=== PATIENT | male | born 1965 | race Caucasian/White ===

== ENCOUNTER 2024-02-22 13:59 | Inpatient (IN) | payer MEDICARE, MEDICAID ==
[2024-02-22 14:34] LABS: #Basophils 0.1 thou/uL (0.0-0.2); #Eosinphils 0.3 thou/uL (0.0-0.7); #Lymphocytes 1.2 thou/uL (1.20-3.40); #Monocytes 0.7 thou/uL (0.11-0.59); #Neutrophils 4.5 thou/uL (1.40-6.50); %Eosinophils 4.4 % (0.0-10.0); %Lymphocytes 17.4 % (21.0-51.0); %Monocytes 9.7 % (0.0-10.0); %Neutrophils 67.5 % (42.0-75.0); Hemoglobin 14.1 g/dL (14.0-18.0); Mean Corpuscular HGB CONC 32.1 g/dL (32.0-36.0); Mean Corpuscular Hemoglobin 28.6 pg (27.0-31.0); Mean Platelet Volume 6.2 fL (7.4-10.4); Platelet Count 309 10x3/uL (130-400); RBC Distribution Width 13.5 % (11.5-14.5); Red Blood Cell (RBC) Count 4.94 mill/uL (4.70-6.10); White Blood Cell (WBC) Count 6.7 10x3/uL (4.8-10.8)
[2024-02-22 14:52] LABS: ALT (SGPT) 12 U/L (8-55); AST (SGOT) 12 U/L (5-34); Albumin 3.9 g/dL (3.5-5.0); Alkaline Phosphatase 80 U/L (40-110); Anion Gap 15 mmol/L (10-20); BUN (Urea Nitrogen) 17 mg/dL (8.4-25.7); Bilirubin, Total 0.4 mg/dL (0.2-1.2); Calc. Creatinine Clearance 0 mL/min (70-130); Calcium 9.1 mg/dL (7.8-10.44); Carbon Dioxide 24 mmol/L (22-29); Chloride 105 mmol/L (98-107); Estimated GFR 70; Globulin 3.5 g/dL (2.4-3.5); Glucose 237 mg/dL (70-105); Potassium 4.8 mmol/L (3.5-5.1); Protein, Total 7.4 g/dL (6.0-8.3); Sodium 139 mmol/L (136-145); Troponin I 0.019 ng/mL (< 0.028)
[2024-02-22] MEDS ORDERED: traZODone HCl 50 MG TAB PO PRN (17:35)
[2024-02-22] MEDS ORDERED: Senokot S 8.6-50 MG TAB PO PRN (17:36)
[2024-02-22] MEDS ORDERED: Acetaminophen 325 MG TAB PO PRN (17:36)
[2024-02-22] MEDS ORDERED: Glucagon 1 MG/ML KIT IM PRN (17:39)
[2024-02-22] MEDS ORDERED: Dextrose 50% Abboject 50 ML SYRINGE SLOW IVP PRN (17:39)
[2024-02-22] MEDS ORDERED: Dextrose 5% in Water 1,000 ML IV PRN (17:39)
[2024-02-22] MEDS: Acetaminophen 500 MG TAB ONE (18:08)
[2024-02-22] MEDS: Sodium Chloride 0.9% 100 ML ONE (18:08)
[2024-02-22] MEDS: cefTRIAXone (ROCEPHIN) 2 GM VIAL ONE (18:08)
[2024-02-22] MEDS ORDERED: NALOXONE HCL 4 MG L NARE PRN (18:23)
[2024-02-22] MEDS: Lantus 1000 UNITS/10 ML VIAL SC SCH (20:21)
[2024-02-22] MEDS: Labetalol HCl 200 MG TAB PO SCH (20:22)
[2024-02-22] MEDS: Apixaban 5 MG TAB PO SCH (20:22)
[2024-02-22] MEDS: Carvedilol 25 MG TAB PO SCH (20:22)
[2024-02-22] MEDS: Cyclobenzaprine 10 MG TAB PO SCH (20:23)
[2024-02-22] MEDS: HumaLOG 300 UNITS/3 ML VIAL SC PRN (20:34)
[2024-02-22] MEDS: Divalproex Sodium 250 MG ER.TAB PO SCH (20:36)
[2024-02-22] MEDS: Vancomycin HCl 750 MG in Sodium Chloride 0.9% 250 ML 250 ML IVPB SCH ×2 (23:18→23:21)
[2024-02-23 05:36] VITALS: BMI 26.1
[2024-02-23 05:38] LABS: #Basophils 0.1 thou/uL (0.0-0.2); #Eosinphils 0.4 thou/uL (0.0-0.7); #Lymphocytes 1.5 thou/uL (1.20-3.40); #Monocytes 0.8 thou/uL (0.11-0.59); #Neutrophils 3.5 thou/uL (1.40-6.50); %Eosinophils 6.5 % (0.0-10.0); %Lymphocytes 24.2 % (21.0-51.0); %Monocytes 12.7 % (0.0-10.0); %Neutrophils 55.6 % (42.0-75.0); Hematocrit 37.5 % (42.0-52.0); Hemoglobin 12.7 g/dL (14.0-18.0); Mean Corpuscular HGB CONC 33.8 g/dL (32.0-36.0); Mean Corpuscular Hemoglobin 29.8 pg (27.0-31.0); Mean Corpuscular Volume 88.1 fl (78.0-98.0); Mean Platelet Volume 5.9 fL (7.4-10.4); Platelet Count 266 10x3/uL (130-400); RBC Distribution Width 13.6 % (11.5-14.5); Red Blood Cell (RBC) Count 4.26 mill/uL (4.70-6.10); White Blood Cell (WBC) Count 6.3 10x3/uL (4.8-10.8)
[2024-02-23 05:43] LABS: Vancomycin, Random 18.6 ug/mL (See Comment)
[2024-02-23 05:45] LABS: ALT (SGPT) 10 U/L (8-55); AST (SGOT) 9 U/L (5-34); Albumin 3.3 g/dL (3.5-5.0); Alkaline Phosphatase 69 U/L (40-110); Anion Gap 12 mmol/L (10-20); BUN (Urea Nitrogen) 14 mg/dL (8.4-25.7); Bilirubin, Total 0.2 mg/dL (0.2-1.2); Calc. Creatinine Clearance 78 mL/min (70-130); Calcium 8.6 mg/dL (7.8-10.44); Carbon Dioxide 24 mmol/L (22-29); Chloride 110 mmol/L (98-107); Estimated GFR 92; Globulin 2.9 g/dL (2.4-3.5); Glucose 189 mg/dL (70-105); Potassium 4.1 mmol/L (3.5-5.1); Protein, Total 6.2 g/dL (6.0-8.3); Sodium 142 mmol/L (136-145)
[2024-02-23] MEDS: Lisinopril 10 MG TAB PO SCH (08:30)
[2024-02-23] MEDS: Atorvastatin Calcium 40 MG TAB PO SCH (08:31)
[2024-02-23] MEDS: Tamsulosin HCl 0.4 MG CAP PO SCH (08:32)
[2024-02-23] MEDS: HumaLOG 300 UNITS/3 ML VIAL SC PRN (12:50)
[2024-02-23] MEDS: Acetaminophen/Codeine 30-300mg Tablet PO PRN (12:59)
[2024-02-23] MEDS: cefTRIAXone\\ROCEPHIN 2 GM in Sodium Chloride 0.9% 100 ML IVPB SCH (15:47)
[2024-02-23] MEDS: HYDROcodone/Acetaminophen 5/325 mg Tablet PO PRN (17:32)
[2024-02-23] MEDS: Vancomycin HCl 750 MG in Sodium Chloride 0.9% 250 ML 250 ML IVPB SCH (21:38)
[2024-02-23] MEDS: Vancomycin HCl 500 MG in Sodium Chloride 0.9% 100 ML IVPB SCH (21:42)
[2024-02-24 06:25] LABS: Vancomycin, Random 16.6 ug/mL (See Comment)
[2024-02-24] MEDS: Amlodipine 5 MG TAB PO SCH (09:01)
[2024-02-24 12:27] VITALS: BMI 25.7
[2024-02-24] MEDS: Vancomycin HCl 750 MG in Sodium Chloride 0.9% 250 ML 250 ML IVPB SCH ×2 (12:38→22:18)
[2024-02-24] MEDS ORDERED: Vancomycin HCl 750 MG in Sodium Chloride 0.9% 250 ML 250 ML IVPB SCH (23:00)
[2024-02-25 04:55] VITALS: TEMP 97.5
[2024-02-25] MEDS ORDERED: Ondansetron ODT 4 MG TAB PO PRN (08:09)
[2024-02-25] MEDS ORDERED: Senokot S 8.6-50 MG TAB PO PRN (08:09)
[2024-02-25] MEDS ORDERED: Acetaminophen 325 MG TAB PO PRN (08:09)
[2024-02-25] MEDS ORDERED: Glucagon 1 MG/ML KIT IM PRN (08:19)
[2024-02-25] MEDS ORDERED: HumaLOG 300 UNITS/3 ML VIAL SC PRN (08:19)
[2024-02-25] MEDS ORDERED: Dextrose 50% Abboject 50 ML SYRINGE SLOW IVP PRN (08:19)
[2024-02-25] MEDS ORDERED: Dextrose 5% in Water 1,000 ML IV PRN (08:19)
[2024-02-25] MEDS: Famotidine 20 MG TAB PO SCH (09:13)
[2024-02-25 09:18] VITALS: BP 145/94
[2024-02-25] MEDS: HYDROcodone/Acetaminophen 5/325 mg Tablet PO PRN (09:44)
[2024-02-25] MEDS ORDERED: Lantus 1000 UNITS/10 ML VIAL SC SCH (21:00)
[2024-02-25] MEDS ORDERED: Atorvastatin Calcium 40 MG TAB PO SCH (21:00)
== END 2024-02-25 08:10 | disposition swing bed (61) | DRG 863 ==
LOC: BURERS 13:59 → BURMED 16:33
PROVIDERS: ADMIT Family Medicine; ATTEND Family Medicine
DX: T81.41XA Infection following a procedure, superficial incisional surgical site, initial encounter (principal); L02.213 Cutaneous abscess of chest wall; B95.62 Methicillin resistant Staphylococcus aureus infection as the cause of diseases classified elsewhere; I48.91 Unspecified atrial fibrillation; I50.9 Heart failure, unspecified; I11.0 Hypertensive heart disease with heart failure; I25.2 Old myocardial infarction; E11.65 Type 2 diabetes mellitus with hyperglycemia; Z79.01 Long term (current) use of anticoagulants; Z79.899 Other long term (current) drug therapy; Z79.4 Long term (current) use of insulin
CPT/HCPCS: 36415; 36416; 71045; 80053; 80202; 83605; 83880; 84484; 85025; 87040; 87070; 87077; 87186; 87205; 96365; 97602; J0696; J1815; J3370; J3490; J7050

== ENCOUNTER 2024-04-09 17:20 | Emergency (ER) | payer OTHER, MEDICARE, MEDICAID ==
[2024-04-09] MEDS ORDERED: Acetaminophen/Codeine 30-300mg Tablet ONE (17:52)
[2024-04-09] MEDS ORDERED: Morphine 4 MG/ML VIAL ONE ×2 (19:12→20:42)
[2024-04-09 19:35] LABS: #Basophils 0.1 thou/uL (0.0-0.2); #Eosinphils 0.3 thou/uL (0.0-0.7); #Lymphocytes 1.4 thou/uL (1.20-3.40); #Monocytes 0.5 thou/uL (0.11-0.59); #Neutrophils 4.6 thou/uL (1.40-6.50); %Basophils 0.9 % (0.0-1.0); %Lymphocytes 20.3 % (21.0-51.0); %Monocytes 7.3 % (0.0-10.0); %Neutrophils 67.5 % (42.0-75.0); Hematocrit 36.3 % (42.0-52.0); Hemoglobin 12.1 g/dL (14.0-18.0); Mean Corpuscular HGB CONC 33.3 g/dL (32.0-36.0); Mean Corpuscular Hemoglobin 29.1 pg (27.0-31.0); Mean Corpuscular Volume 87.1 fl (78.0-98.0); Platelet Count 203 10x3/uL (130-400); RBC Distribution Width 12.8 % (11.5-14.5); Red Blood Cell (RBC) Count 4.17 mill/uL (4.70-6.10); White Blood Cell (WBC) Count 6.9 10x3/uL (4.8-10.8)
[2024-04-09 19:45] LABS: INR-International Normal Ratio 1.1; Prothrombin Time 14.5 sec (12.0-14.7)
[2024-04-09 19:51] LABS: ALT (SGPT) 21 U/L (8-55); AST (SGOT) 18 U/L (5-34); Albumin 3.7 g/dL (3.4-4.8); Alkaline Phosphatase 113 U/L (40-110); Anion Gap 15 mmol/L (10-20); BUN (Urea Nitrogen) 13 mg/dL (8.4-25.7); Bilirubin, Total 0.3 mg/dL (0.2-1.2); Calc. Creatinine Clearance 0 mL/min (70-130); Calcium 9.1 mg/dL (7.8-10.44); Carbon Dioxide 25 mmol/L (23-31); Chloride 104 mmol/L (98-107); Estimated GFR 96; Globulin 3.3 g/dL (2.4-3.5); Glucose 171 mg/dL (80-115); Potassium 4.3 mmol/L (3.5-5.1); Sodium 140 mmol/L (136-145)
[2024-04-09] MEDS ORDERED: Morphine 2 MG/ML VIAL ONE (22:50)
== END 2024-04-09 23:01 | disposition short-term general hospital (02) ==
LOC: BURERS 17:20
DX: S72.001A Fracture of unspecified part of neck of right femur, initial encounter for closed fracture (principal); E11.9 Type 2 diabetes mellitus without complications; I25.2 Old myocardial infarction; I11.0 Hypertensive heart disease with heart failure; I50.9 Heart failure, unspecified; W19.XXXA Unspecified fall, initial encounter; Z79.4 Long term (current) use of insulin; Z87.891 Personal history of nicotine dependence; Z79.899 Other long term (current) drug therapy
CPT/HCPCS: 80053; 85025; 85610; 96374; 96376; J2272

== ENCOUNTER 2024-10-26 14:34 | Emergency (ER) | payer MEDICARE, OTHER ==
[2024-10-26 15:01] LABS: #Eosinophils 0.4 thou/uL (0.0-0.7); #Lymphocytes 1.1 thou/uL (1.20-3.40); #Monocytes 0.5 thou/uL (0.11-0.59); #Neutrophils 5.2 thou/uL (1.40-6.50); %Basophils 0.5 % (0.0-1.0); %Eosinophils 5.3 % (0.0-10.0); %Lymphocytes 15.6 % (21.0-51.0); %Monocytes 6.9 % (0.0-10.0); %Neutrophils 71.7 % (42.0-75.0); Hematocrit 41.7 % (42.0-52.0); Mean Corpuscular HGB CONC 33.5 g/dL (32.0-36.0); Mean Corpuscular Hemoglobin 28.4 pg (27.0-31.0); Mean Corpuscular Volume 84.9 fl (78.0-98.0); Mean Platelet Volume 6.5 fL (7.4-10.4); Platelet Count 248 10x3/uL (130-400); RBC Distribution Width 11.8 % (11.5-14.5); Red Blood Cell (RBC) Count 4.92 mill/uL (4.70-6.10); White Blood Cell (WBC) Count 7.2 10x3/uL (4.8-10.8)
[2024-10-26 15:10] LABS: INR-International Normal Ratio 1.2; Prothrombin Time 15.1 sec (12.0-14.7)
[2024-10-26 15:18] LABS: ALT (SGPT) 44 U/L (Less than 45); AST (SGOT) 35 U/L (11-34); Albumin 4.1 g/dL (3.1-4.5); Alkaline Phosphatase 130 U/L (40-110); Anion Gap 16 mmol/L (10-20); BUN (Urea Nitrogen) 23 mg/dL (8.4-25.7); Bilirubin, Total 0.3 mg/dL (0.3-1.2); Calc. Creatinine Clearance 0 mL/min (70-130); Calcium 9.8 mg/dL (7.8-10.44); Carbon Dioxide 25 mmol/L (23-31); Chloride 99 mmol/L (98-107); Estimated GFR 52; Globulin 3.9 g/dL (2.4-3.5); Glucose 276 mg/dL (80-115); Potassium 4.1 mmol/L (3.5-5.1); Sodium 136 mmol/L (136-145)
[2024-10-26] MEDS ORDERED: Lidocaine 1% PF 5 ML VIAL ONE ×2 (15:33→17:54)
[2024-10-26] MEDS ORDERED: Acetaminophen 500 MG TAB ONE (18:11)
== END 2024-10-26 20:25 ==
LOC: BURERS 14:34
DX: S01.311A Laceration without foreign body of right ear, initial encounter (principal); S01.81XA Laceration without foreign body of other part of head, initial encounter; E11.9 Type 2 diabetes mellitus without complications; I25.2 Old myocardial infarction; I11.0 Hypertensive heart disease with heart failure; I50.9 Heart failure, unspecified; W01.10XA Fall on same level from slipping, tripping and stumbling with subsequent striking against unspecified object, initial encounter
CPT/HCPCS: 12001; 12013; 36415; 70450; 80053; 85025; 85610